=== PATIENT | female | born 1990 | race Caucasian/White ===

== ENCOUNTER 2017-01-12 08:11 | Emergency (ER) | payer MEDICAID ==
--- NOTE | 2017-01-12 08:25 | EDPHY ---
H & P Time Seen by Provider: 01/12/17 08:20 HPI/ROS: 26 yo f presents c/o vaginal discharge and itching for several days, had unprotected sex approx 3 weeks ago. No nausea or vomiting, no abdominal pain, no fever or chills. Pt denies prior hx of STI. LMP last week. Pt adamant that she is not . Review of systems As per HPI General no fever no chills no weakness HEENT no eye pain no eye discharge. No eye redness, no sore throat Respiratory no cough, no shortness of breath Cardiac no chest pain, no peripheral edema GI no abdominal pain, no diarrhea, no constipation, no nausea, no vomiting no flank pain, no hematuria, no dysuria, positive vaginal discharge Musculoskeletal no myalgias, no joint pain Heme no easy bruising, no easy bleeding Endo no polyuria, no polydipsia Skin no rashes, no pruritus Neuro no syncope, no dizziness, no headaches Psych is no suicidal ideation, no homicidal ideation Past Medical/Surgical History: ED negative xray Social History: non contributory Smoking Status: Unknown if ever smoked Physical Exam: 26-year-old female alert and oriented no acute distress nontoxic appearance afebrile Alert and oriented in no acute distress nontoxic appearance, afebrile Atraumatic normocephalic Neck no JVD Lungs clear to auscultation, no respiratory distress Heart regular rate and rhythm Extremities no cyanosis clubbing edema External genitalia normal, no lesions Speculum exam os visualized, erythema to the vaginal sr and cervix, then off- white discharge, positive CMT No ulcerations Constitutional: Initial Vital Signs Temperature (C) 36.6 C 01/12/17 08:28 Heart Rate 65 01/12/17 08:28 Respiratory Rate 18 01/12/17 08:28 Blood Pressure 130/92 H 01/12/17 08:28 O2 Sat (%) 96 01/12/17 08:28 O2 Delivery Mode Room Air Allergies/Adverse Reactions: No Known Allergies Allergy (Unverified 01/12/17 09:00) Home Medications: Medication Instructions Recorded NK [No Known Home Meds] 01/12/17 Medical Decision Making ED Course/Re-evaluation: Patient seen evaluated for vaginal itching and discharge Differential diagnosis considered Vaginitis, cervicitis, bacterial vaginosis exam with erythema and then off-white discharge Labs pending Impression Vaginitis Plan We will treat depending on results Offered patient ceftriaxone 250 and Azithromycin 2 g patient would prefer to wait for results - Data Points Laboratory Results: 01/12/17 01/12/17 08:38 08:38 Kaylene species DNA Pending C.trachomatis RNA (TMA) Pending Gardnerella DNA Probe Pending N.gonorrhoeae RNA (TMA) Pending Trichomonas DNA Probe Pending Medications Given: Discontinued Medications Azithromycin (Zithromax) 2,000 mg PO EDNOW ONE PRN Reason: Protocol Stop: 01/12/17 08:57 Last Admin: 01/12/17 09:01 Dose: Not Given Ceftriaxone Sodium (Rocephin 250mg Vial) 250 mg IM EDNOW ONE PRN Reason: Protocol Stop: 01/12/17 08:56 Last Admin: 01/12/17 09:02 Dose: Not Given Departure - Departure Disposition: Home, Routine, Self-Care Clinical Impression: Acute vaginitis Condition: Good Instructions: Cervicitis (ED), Vaginitis (ED) Referrals: NONE *PRIMARY CARE P,. [Primary Care Provider] - As per Instructions
[2017-01-12] MEDS ORDERED: cefTRIAXone 250 MG VIAL IM ONE (08:55)
[2017-01-12] MEDS ORDERED: AZITHROMYCIN 250 MG TAB PO ONE (08:56)
[2017-01-12 09:09] VITALS: RESP 18; TEMP 98
[2017-01-12 09:14] VITALS: BP 135/66; PULSE 74; O2SAT 97
[2017-01-15 13:04] LABS: CHLAMYDIA AMPLIFICATION GENPRB POSITIVE (NEGATIVE)
== END 2017-01-12 09:13 | disposition home or self-care (01) ==
LOC: CED 08:11
DX: N76.0 Acute vaginitis (principal)